=== PATIENT | female | born 1980 | race Caucasian/White ===

== ENCOUNTER 2019-03-24 22:26 | Emergency (ER) | payer OTHER ==
[~2019-03-24] VITALS: Ht 162.6 cm; Wt 61.2 kg
[2019-03-25] MEDS ORDERED: XOPENEX0.63 MG/3 IH (02:15)
[2019-03-25] MEDS ORDERED: KETO10TA2 PO (02:15)
== END 2019-03-25 02:30 | disposition home or self-care (01) ==
LOC: ER 22:26
DX: N83.292 Other ovarian cyst, left side (principal); N92.1 Excessive and frequent menstruation with irregular cycle; R19.7 Diarrhea, unspecified